=== PATIENT | female | born 1980 | race Caucasian/White ===

== ENCOUNTER 2017-08-24 14:21 | Emergency (ER) | payer SELFPAY ==
[~2017-08-24] VITALS: Ht 157.5 cm; Wt 60.0 kg
[2017-08-24 14:29] VITALS: BP 128/79; PULSE 85; RESP 18; TEMP 97.9; O2SAT 100
--- NOTE | 2017-08-24 14:50 | PD ---
HPI Chief Complaint: Complaint Time Seen by Provider: 14:47 Travel History International Travel<30 days: No Contact w/Intl Traveler<30days: No Traveled to known affect area: No History of Present Illness HPI 37-year-old female patient with history of kidney stones, presents to the ER today with hematuria and 3 out of 10 left-sided flank pains. She denies any fevers, vomiting, or other symptoms. She states that she had moved here from [place] and has had lithotripsy and kidney stents done in the past. She does not yet have a urologist in the area. Modifying Factors: None Associated Signs & Symptoms: Hematuria, left flank pain Risk Factors: Kidney stone history PFSH Social History Tobacco Use: No Allergies-Medications (Allergen,Severity, Reaction): Coded Allergies: sulfamethoxazole (Verified Allergy, Severe, Itching, 08/24/17) trimethoprim (Verified Allergy, Severe, Itching, 08/24/17) Reported Meds & Prescriptions Reported Meds & Active Scripts Active Reported Ranitidine (Ranitidine HCl) 300 Mg Tab 300 Mg PO HS Review of Systems Except as stated in HPI: all other systems reviewed are Neg Physical Exam Narrative GENERAL: Well developed middle-aged female patient currently in mild distress. Awake and oriented 3. SKIN: Focused skin assessment warm/dry. HEAD: Atraumatic. Normocephalic. EYES: Pupils equal and round. No scleral icterus. No injection or drainage. ENT: No nasal bleeding or discharge. Mucous membranes pink and moist. NECK: Trachea midline. No JVD. Supple. CARDIOVASCULAR: Regular rate and rhythm. No murmur appreciated. RESPIRATORY: No accessory muscle use. Clear to auscultation. Breath sounds equal bilaterally. GASTROINTESTINAL: Abdomen soft, mild left lower quadrant tenderness without guarding rebound, nondistended. Hepatic and splenic margins not palpable. MUSCULOSKELETAL: No obvious deformities. No clubbing. No cyanosis. No edema. NEUROLOGICAL: Awake and alert. No obvious cranial nerve deficits. Motor grossly within normal limits. Normal speech. PSYCHIATRIC: Appropriate mood and affect; insight and judgment normal. Data Data Last Documented VS Vital Signs Date Time Temp Pulse Resp B/P (MAP) Pulse Ox O2 Delivery O2 Flow Rate FiO2 08/24/17 14:58 85 24 131/74 (93) 99 Room Air 08/24/17 14:29 97.9 Orders Orders Urinalysis - C+S If Indicated (08/24/17 14:41) Ed Urine Pregnancytest Poc (08/24/17 14:41) Complete Blood Count With Diff (08/24/17 14:47) Comprehensive Metabolic Panel (08/24/17 14:47) Lipase (08/24/17 14:47) Ct Abd/Pel W/O Iv Contrast (08/24/17 14:47) Iv Access Insert/Monitor (08/24/17 14:47) Ecg Monitoring (08/24/17 14:47) Oximetry (08/24/17 14:47) Urine Culture (08/24/17 15:05) Labs Laboratory Tests Test 08/24/17 15:05 White Blood Count 10.1 TH/MM3 Red Blood Count 4.07 MIL/MM3 Hemoglobin 13.8 GM/DL Hematocrit 40.0 % Mean Corpuscular Volume 98.3 FL Mean Corpuscular Hemoglobin 33.9 PG Mean Corpuscular Hemoglobin Concent 34.5 % Red Cell Distribution Width 13.7 % Platelet Count 320 TH/MM3 Mean Platelet Volume 7.2 FL Neutrophils (%) (Auto) 67.7 % Lymphocytes (%) (Auto) 25.1 % Monocytes (%) (Auto) 4.7 % Eosinophils (%) (Auto) 1.9 % Basophils (%) (Auto) 0.6 % Neutrophils # (Auto) 6.9 TH/MM3 Lymphocytes # (Auto) 2.5 TH/MM3 Monocytes # (Auto) 0.5 TH/MM3 Eosinophils # (Auto) 0.2 TH/MM3 Basophils # (Auto) 0.1 TH/MM3 CBC Comment DIFF FINAL Differential Comment Urine Color DARK-RED Urine Turbidity CLOUDY Urine pH 7.0 Urine Specific [place] 1.015 Urine Protein 100 mg/dL Urine Glucose (UA) NEG mg/dL Urine Ketones TRACE mg/dL Urine Occult Blood LARGE Urine Nitrite NEG Urine Bilirubin NEG Urine Urobilinogen 2.0 MG/DL Urine Leukocyte Esterase MOD Urine RBC /hpf Urine WBC /hpf Urine WBC Clumps MANY Urine Squamous Epithelial Cells 6 /hpf Urine Bacteria MANY /hpf Urine Mucus MOD /lpf Microscopic Urinalysis Comment CULTURE INDICATED Blood Urea Nitrogen 7 MG/DL Creatinine 0.73 MG/DL Random Glucose 155 MG/DL Total Protein 6.6 GM/DL Albumin 3.3 GM/DL Calcium Level 8.7 MG/DL Alkaline Phosphatase 111 U/L Aspartate Amino Transf (AST/SGOT) 66 U/L Alanine Aminotransferase (ALT/SGPT) 38 U/L Total Bilirubin 0.4 MG/DL Sodium Level 137 MEQ/L Potassium Level 3.9 MEQ/L Chloride Level 102 MEQ/L Carbon Dioxide Level 25.6 MEQ/L Anion Gap 9 MEQ/L Estimat Glomerular Filtration Rate 89 ML/MIN Lipase 131 U/L MDM Medical Decision Making Medical Screen Exam Complete: Yes Emergency Medical Condition: Yes Medical Record Reviewed: Yes Interpretation(s) Laboratory Tests Test 08/24/17 15:05 Urine Color DARK-RED (YELLW/STRAW) Urine Turbidity CLOUDY (CLEAR) Urine Protein 100 mg/dL (NEG-TRACE) Urine Ketones TRACE mg/dL (NEG) Urine Occult Blood LARGE (NEG) Urine Leukocyte Esterase MOD (NEG) Urine WBC Clumps MANY (NONE) Urine Bacteria MANY /hpf (NONE) Urine Mucus MOD /lpf (OCC) Random Glucose 155 MG/DL (74-106) Albumin 3.3 GM/DL (3.4-5.0) Aspartate Amino Transf (AST/SGOT) 66 U/L (15-37) Last 24 hours Impressions Abdomen/Pelvis CT 08/24/17 1447 Signed Impressions: Service Date/Time: Thursday, August 24, 2017 15:45 - CONCLUSION: 1. Numerous bilateral nonobstructing renal calculi. 2. 2 low-density rounded masses in the left ovary likely representing cysts. 3. Diffuse low-density thickening of the colon and terminal ileum. Question chronic inflammatory bowel disease. No acute inflammatory findings. 4. Sclerosis adjacent to the bilateral sacroiliac joints suggesting chronic arthrosis or sacroiliitis. Lucas Verduzco MD Differential Diagnosis UTI versus renal colic versus colitis Narrative Course Lab work shows significant UTI. CT did not show any signs of acute intra- abdominal processes. She does have kidney stones but they are nonobstructing and she has signs of chronic terminal bowel wall thickening. At this point, my plan would be to treat her for UTI and have her follow-up with urology. Return for any worsening in symptoms as necessary. The plan has been discussed with her and she states understanding. Diagnosis Primary Impression: UTI (urinary tract infection) Med/Other Pt SpecificInfo: Prescription(s) given Scripts Ciprofloxacin (Cipro) 500 Mg Tab 500 MG PO BID for Infection for 7 Days, #14 TAB 0 Refills Prov: Krys Chavis MD 08/24/17 Disposition: 01 DISCHARGE HOME Condition: Stable Krys Chavis MD August 24, 2017 14:50
[2017-08-24 14:58] VITALS: BP 131/74; PULSE 85; RESP 24; O2SAT 99
[2017-08-24] MEDS ORDERED: RANI300T PO (15:01)
[2017-08-24 15:35] LABS: AUTOMATED NEUTROPHIL # 6.9 TH/MM3 (1.8-7.7); BASOPHIL # 0.1 TH/MM3 (0-0.2); BASOPHIL % 0.6 % (0.0-2.0); EOSINOPHIL # 0.2 TH/MM3 (0-0.4); EOSINOPHIL % 1.9 % (0.0-4.0); HEMOGLOBIN 13.8 GM/DL (11.6-15.3); LYMPH % 25.1 % (9.0-44.0); LYMPHOCYTE # 2.5 TH/MM3 (1.0-4.8); MEAN CELL VOLUME 98.3 FL (80.0-100.0); MEAN CORPUSCULAR HEMOGLOBIN 33.9 PG (27.0-34.0); MEAN CORPUSCULAR HGB CONC 34.5 % (32.0-36.0); MEAN PLATELET VOLUME 7.2 FL (7.0-11.0); MONO % 4.7 % (0.0-8.0); MONOCYTE # 0.5 TH/MM3 (0-0.9); NEUT % 67.7 % (16.0-70.0); PLATELET COUNT 320 TH/MM3 (150-450); RED BLOOD COUNT 4.07 MIL/MM3 (4.00-5.30); RED CELL DISTRIBUTION WIDTH 13.7 % (11.6-17.2); WHITE BLOOD COUNT 10.1 TH/MM3 (4.0-11.0)
[2017-08-24 15:48] LABS: BACTERIA, URINE MANY /hpf; BILIRUBIN, URINE NEG (NEG); BLOOD, URINE LARGE (NEG); GLUCOSE,URINE NEG (NEG); KETONE, URINE TRACE mg/dL (NEG); MUCUS URINE MOD /lpf (OCC); NITRITE,URINE NEG (NEG); SQUAMOUS EPITHELIAL CELL URINE 6 /hpf (0-5); URINE LEUKOCYTE ESTERASE MOD (NEG); WHITE BLOOD CELL CLUMPS MANY
[2017-08-24 15:49] LABS: URINE COLOR DARK-RED (YELLW/STRAW)
[2017-08-24 15:53] LABS: ALKALINE PHOSPHATASE 111 U/L (45-117); TOTAL BILIRUBIN ADULT 0.4 MG/DL (0.2-1.0); TOTAL PROTEIN 6.6 GM/DL (6.4-8.2)
[2017-08-24 15:55] LABS: ALBUMIN 3.3 GM/DL (3.4-5.0); ALT (GPT) 38 U/L (10-53); AST (GOT) 66 U/L (15-37); BICARBONATE 25.6 MEQ/L (21.0-32.0); BLOOD UREA NITROGEN 7 MG/DL (7-18); CALCIUM 8.7 MG/DL (8.5-10.1); CHLORIDE 102 MEQ/L (98-107); CREATININE 0.73 MG/DL (0.50-1.00); GLOMERULAR FILTRATION RATE 89 ML/MIN (>89); GLUCOSE,RANDOM 155 MG/DL (74-106); SODIUM (NA) 137 MEQ/L (136-145)
--- NOTE | 2017-08-24 16:08 | RADRPT ---
EXAM DATE/TIME: 08/24/2017 15:45 [facility] COMPARISON: No previous studies available for comparison. INDICATIONS : Hematuria since last night. ORAL CONTRAST: No oral contrast ingested. RADIATION DOSE: 7.64 CTDIvol (mGy) MEDICAL HISTORY : None SURGICAL HISTORY : None. ENCOUNTER: Initial ACUITY: 1 day PAIN SCALE: 0/10 LOCATION: Bilateral abdomen TECHNIQUE: Volumetric scanning of the abdomen and pelvis was performed. Using automated exposure control and ad justment of the mA and/or kV according to patient size, radiation dose was kept as low as reasonably achievable to obtain optimal diagnostic quality images. DICOM format image data is available electro nically for review and comparison. FINDINGS: LOWER LUNGS: The visualized lower lungs are clear. LIVER: Cholecystectomy clips. Liver within normal limits. SPLEEN: Normal size without lesion. PANCREAS: Within normal limits. KIDNEYS: Numerous bilateral renal calculi. The largest on the right measures 7 mm in the lower pole. The large st on the left measures 7 mm, also in the lower pole. No ureteral calculi identified. No evidence of hydronephrosis. ADRENAL GLANDS: Within normal limits. VASCULAR: There is no aortic aneurysm. BOWEL/MESENTERY: Nonspecific low-density wall thickening of the colon diffusely. Colon is nondistended diffusely. A si milar finding is also seen in the terminal ileum. This finding can be seen with chronic inflammatory bowel disease. No acute inflammatory findings. Appendix not identified. No free air or free fluid. ABDOMINAL WALL: Mild nonspecific edema in the anterior abdominal wall subcutaneous adipose layer. RETROPERITONEUM: 2 rounded low density masses in the left ovary measuring 2.7 and 2.4 cm in diameter, most likely to r epresent cysts. BLADDER: No wall thickening or mass. REPRODUCTIVE: Within normal limits. INGUINAL: There is no lymphadenopathy or hernia. MUSCULOSKELETAL: Mild sclerosis about the sacroiliac joints gesting chronic arthrosis or chronic sacroiliitis. CONCLUSION: 1. Numerous bilateral nonobstructing renal calculi. 2. 2 low-density rounded masses in the left ovary likely representing cysts. 3. Diffuse low-density thickening of the colon and terminal ileum. Question chronic inflammatory ellyn l disease. No acute inflammatory findings. 4. Sclerosis adjacent to the bilateral sacroiliac joints suggesting chronic arthrosis or sacroiliitis . Lucas Verduzco MD on August 24, 2017 at 16:00 Board Certified Radiologist. This report was verified electronically.
[2017-08-24] MEDS ORDERED: CIPR-9 PO (16:30)
[2017-08-24 16:47] VITALS: BP 124/66; PULSE 86; RESP 22; O2SAT 99
== END 2017-08-24 16:59 | disposition home or self-care (01) ==
LOC: EDBD 14:21 → NEPE 14:21
DX: N39.0 Urinary tract infection, site not specified (principal); N20.0 Calculus of kidney
CPT/HCPCS: 74176; 80053; 81001; 83690; 84703; 85025; 87077; 87086; 87186